=== PATIENT | male | born 1960 | race Caucasian/White ===

== ENCOUNTER 2016-07-02 12:38 | Emergency (ER) | payer MEDICARE ==
[2016-07-02 14:16] LABS: BASO % 0.2 % (0.2-1.2); EOS # 0.3 10_X3_uL (0.0-0.5); EOS % 2.7 % (0.8-7.0); GRAN % 65.6 % (34.0-67.9); HEMATOCRIT 39.1 % (40-51); HEMOGLOBIN 13.5 g/dL (13.7-17.5); LYMPH % 24.5 % (21.8-53.1); MEAN CORPUSCULAR HEMOGLOBIN 32.6 pg (27.0-33.0); MEAN CORPUSCULAR HGB CONC 34.5 g/dL (32.0-36.0); MEAN CORPUSCULAR VOLUME 94.4 fL (79-92); MONO # 0.9 10_X3_uL (0.3-0.8); PLATELET COUNT 179 x10_3/uL (163-337); RED BLOOD COUNT 4.14 x10_6/uL (4.6-6.1); RED CELL DISTRIBUTION WIDTH 14.4 % (11.6-14.4); WHITE BLOOD COUNT 12.2 x10_3/uL (4.2-9.1)
[2016-07-02 14:31] LABS: ALBUMIN 3.8 gm/dL (3.4-5.0); ALKALINE PHOSPHATASE 87 U/L (50-136); ALT/SGPT 23 U/L (7.53-40.17); AST/SGOT 23 U/L (6.66-35.34); BILIRUBIN,TOTAL 0.47 mg/dL (0.0-1.0); BLOOD UREA NITROGEN 17 mg/dL (7-18); CALCIUM 8.9 mg/dL (8.7-10.7); CARBON DIOXIDE 23 mmol/L (21-32); CREATINE KINASE 58 U/L (35-232); CREATININE 0.6 mg/dL (0.6-1.3); GLUCOSE,RANDOM 118 mg/dL (70-99); POTASSIUM 4.4 mmol/L (3.5-5.1); SODIUM 140 mmol/L (136-145); TOTAL PROTEIN 6.7 gm/dL (6.4-8.2)
== END 2016-07-02 17:22 | disposition home or self-care (01) ==
LOC: ER 12:38
PROVIDERS: Emergency Medicine
DX: R07.9 Chest pain, unspecified (principal); G89.29 Other chronic pain; M54.5 Low back pain; J44.9 Chronic obstructive pulmonary disease, unspecified; E11.9 Type 2 diabetes mellitus without complications; M25.552 Pain in left hip; I10 Essential (primary) hypertension; M54.9 Dorsalgia, unspecified; Z95.810 Presence of automatic (implantable) cardiac defibrillator; Z95.5 Presence of coronary angioplasty implant and graft; F17.210 Nicotine dependence, cigarettes, uncomplicated; Z87.898 Personal history of other specified conditions
CPT/HCPCS: 36415; 71010; 72100; 73502; 80053; 82550; 82553; 85025; 93005; 96372; 99284; 99284-25

== ENCOUNTER 2016-08-21 12:44 | Emergency (ER) | payer MEDICARE | END 2016-08-21 14:29 | disposition left against medical advice (07) | LOC: ER 12:44 | DX: R07.89 Other chest pain (principal); J84.9 Interstitial pulmonary disease, unspecified; I25.10 Atherosclerotic heart disease of native coronary artery without angina pectoris; Z95.5 Presence of coronary angioplasty implant and graft; Z95.0 Presence of cardiac pacemaker; G89.29 Other chronic pain; M54.9 Dorsalgia, unspecified; F17.210 Nicotine dependence, cigarettes, uncomplicated; Z79.899 Other long term (current) drug therapy; Z88.6 Allergy status to analgesic agent; Z88.8 Allergy status to other drugs, medicaments and biological substances ==

== ENCOUNTER 2017-01-16 23:03 | Observation (INO) | payer MEDICARE ==
[~2017-01-16] VITALS: Ht 167.6 cm; Wt 68.0 kg
[2017-01-16 23:58] LABS: BASO % 0.4 % (0.2-1.2); EOS # 0.5 10_X3_uL (0.0-0.5); EOS % 5.9 % (0.8-7.0); GRAN # 3.2 10_X3_uL (1.8-5.4); GRAN % 38.1 % (34.0-67.9); HEMATOCRIT 30.8 % (40-51); HEMOGLOBIN 10.3 g/dL (13.7-17.5); LYMPH # 3.5 10_X3_uL (1.3-3.6); LYMPH % 42.9 % (21.8-53.1); MEAN CORPUSCULAR HEMOGLOBIN 32.5 pg (27.0-33.0); MEAN CORPUSCULAR HGB CONC 33.4 g/dL (32.0-36.0); MEAN CORPUSCULAR VOLUME 97.2 fL (79-92); MEAN PLATELET VOLUME 11.3 fl (7.5-11.5); MONO # 1.1 10_X3_uL (0.3-0.8); MONO % 12.7 % (5.3-12.2); PLATELET COUNT 116 x10_3/uL (163-337); RED BLOOD COUNT 3.17 x10_6/uL (4.6-6.1); RED CELL DISTRIBUTION WIDTH 14.2 % (11.6-14.4); WHITE BLOOD COUNT 8.3 x10_3/uL (4.2-9.1)
[2017-01-17 00:08] LABS: ALBUMIN 3.1 gm/dL (3.4-5.0); ALKALINE PHOSPHATASE 77 U/L (50-136); ALT/SGPT 15 U/L (7.53-40.17); AST/SGOT 21 U/L (6.66-35.34); BILIRUBIN,TOTAL 0.25 mg/dL (0.0-1.0); BLOOD UREA NITROGEN 23 mg/dL (7-18); CALCIUM 7.8 mg/dL (8.7-10.7); CARBON DIOXIDE 22 mmol/L (21-32); CREATINE KINASE 217 U/L (35-232); CREATININE 1.1 mg/dL (0.6-1.3); GLUCOSE,RANDOM 94 mg/dL (70-99); POTASSIUM 4.1 mmol/L (3.5-5.1); SODIUM 141 mmol/L (136-145); TOTAL PROTEIN 5.1 gm/dL (6.4-8.2)
[2017-01-17 06:25] LABS: INR 1.1 (1.0-1.1); PARTIAL THROMBOPLASTIN TIME 25.7 SECONDS (21.8-28.4); PROTHROMBIN TIME (PATIENT) 10.7 SECONDS (9.6-10.8)
[2017-01-17 06:40] LABS: CKMB 8.2 ng/ml (0.0-5.0); TROP-I < 0.30 NG/ML (0.00-0.30)
[2017-01-17 12:23] LABS: CKMB 7.6 ng/ml (0.0-5.0); TROP-I < 0.30 NG/ML (0.00-0.30)
== END 2017-01-17 12:57 | disposition home or self-care (01) ==
LOC: ER 23:03 → MS 01-17 04:13
PROVIDERS: Emergency Medicine; ADMIT Internal Medicine
DX: I20.9 Angina pectoris, unspecified (principal); I25.10 Atherosclerotic heart disease of native coronary artery without angina pectoris; I10 Essential (primary) hypertension; E78.5 Hyperlipidemia, unspecified; J44.9 Chronic obstructive pulmonary disease, unspecified; Z86.19 Personal history of other infectious and parasitic diseases; F17.210 Nicotine dependence, cigarettes, uncomplicated; M62.838 Other muscle spasm; Z95.0 Presence of cardiac pacemaker; Z98.890 Other specified postprocedural states; Z98.52 Vasectomy status; Z88.5 Allergy status to narcotic agent; Z88.8 Allergy status to other drugs, medicaments and biological substances; Z79.899 Other long term (current) drug therapy; Z79.82 Long term (current) use of aspirin; Z79.1 Long term (current) use of non-steroidal anti-inflammatories (NSAID); Z82.49 Family history of ischemic heart disease and other diseases of the circulatory system; Z95.5 Presence of coronary angioplasty implant and graft; Z86.14 Personal history of Methicillin resistant Staphylococcus aureus infection
CPT/HCPCS: 36415; 71010; 80053; 80307; 82550; 82553; 83036; 85025; 85610; 85730; 93005; 96360; 96361; 99070; 99284; 99285-25; G0378